=== PATIENT | female | born 1975 | race African-American/Black ===

== ENCOUNTER 2020-03-12 19:33 | Observation (INO) ==
[2020-03-12] MEDS ORDERED: ASPIRIN 325 MG TABLET PO STA (22:27)
[2020-03-12] MEDS ORDERED: NITROGLYCERIN SL 0.4 MG TABLET SL PRN ×2 (22:27→23:52)
[2020-03-12 22:45] LABS: Basophils # 0.1 10*3/uL (0.0-0.2); Basophils % 0.5 % (0.0-0.8); Eosinophils # 0.2 10*3/uL (0.0-0.87); Eosinophils % 2.5 % (0.00-10.9); Hematocrit 39.5 VOL% (35.7-47.0); Hemoglobin 12.2 GM/DL (12.0-16.0); Immature Granulocytes % 0.4 %; Immature Granulocytes Absolute 0.04 #; Mean Corpuscular HGB Conc 30.9 GM/DL (32-36); Mean Corpuscular Volume 83.5 FL (87-102); Mean Platelet Volume 9.3 FL (9.6-12.0); Monocytes % 5.9 % (1.7-12.7); Neutrophils % 59.7 % (38.7-73.9); Platelet Count 330 T/CUMM (130-400); Red Blood Count 4.73 MC/CUMM (3.8-5.5); Red Cell Distribution Width 16.5 % (9.3-17.3); White Blood Count 9.6 T/CUMM (4-12)
[2020-03-12 23:02] LABS: Alanine Aminotransferase 27 U/L (13-56); Albumin 3.7 G/DL (3.4-5.0); Alkaline Phosphatase 71 U/L (45-117); Aspartate Amino Transferase 13 U/L (0-37); Bilirubin,Total < 0.39 MG/DL (0.2-1.0); Blood Urea Nitrogen 15 MG/DL (7-18); Calcium 9.2 MG/DL (8.5-10.1); Estimated Glom Filtration Rate 121 ML/MIN; Glucose 132 MG/DL (74-106); Osmolality,Calculated 277.7 MOS/KG (273-304)
[2020-03-12] MEDS ORDERED: ACETAMINOPHEN 500 MG TABLET PO STA (23:35)
[2020-03-12] MEDS ORDERED: DEXTROSE 50% 25 GM/50 ML VIAL IV PRN (23:52)
[2020-03-12] MEDS ORDERED: ONDANSETRON 4 MG/2 ML VIAL IV PRN (23:52)
[2020-03-12] MEDS ORDERED: MAGNESIUM SULF RIDER 2 GM in PREMIX 1 EACH IV PRN (23:52)
[2020-03-12] MEDS ORDERED: POTASSIUM CHLORIDE 20 MEQ TABLET PO PRN (23:52)
[2020-03-12] MEDS ORDERED: MAGNESIUM HYDROXIDE SUSP 30 ML UDCUP PO PRN (23:52)
[2020-03-12] MEDS ORDERED: ACETAMINOPHEN 325 MG TABLET PO PRN (23:52)
[2020-03-12] MEDS ORDERED: GLUCAGON 1 MG VIAL IM PRN (23:52)
[2020-03-13 01:29] LABS: INR 0.9
[2020-03-13 06:08] LABS: Albumin 3.6 G/DL (3.4-5.0); Bilirubin,Total 1.7 MG/DL (0.2-1.0); Calcium 8.8 MG/DL (8.5-10.1); Osmolality,Calculated 273.1 MOS/KG (273-304); Risk Ratio 3.65; Total Protein 7.8 G/DL (6.4-8.3); VLDL CHOLESTEROL 18.6 MG/DL
[2020-03-13 06:13] LABS: Troponin I < 0.015 NG/ML (0.00-0.045)
[2020-03-13 06:23] LABS: PT Patient Result 10.3 SECS (9.8-11.9); Partial Thromboplastin Time 29.8 SECS (23.9-33.8)
[2020-03-13] MEDS: INSULIN LISPRO 100 UNIT/ML SUBCUT SCH ×2 (08:04→12:48)
[2020-03-13] MEDS ORDERED: amLODIPine 5 MG TABLET PO SCH (09:00)
[2020-03-13] MEDS ORDERED: ENOXAPARIN 40 MG/0.4 ML SYRINGE SUBCUT SCH (09:00)
[2020-03-13] MEDS ORDERED: METOPROLOL TARTRATE 25 MG TABLET PO SCH (09:00)
[2020-03-13] MEDS ORDERED: ASPIRIN EC 325 MG TABLET PO SCH (09:00)
[2020-03-13] MEDS ORDERED: LOSARTAN 50 MG TABLET PO SCH (09:00)
[2020-03-13 09:41] LABS: Basophils % 0.6 % (0.0-0.8); Eosinophils # 0.2 10*3/uL (0.0-0.87); Hematocrit 37.3 VOL% (35.7-47.0); Hemoglobin 11.7 GM/DL (12.0-16.0); Immature Granulocytes % 0.4 %; Immature Granulocytes Absolute 0.03 #; Lymphocytes # 1.9 10*3/uL (1.4-4.0); Lymphocytes % 27.7 % (21.3-54.2); Mean Corpuscular HGB Conc 31.4 GM/DL (32-36); Mean Corpuscular Volume 82.9 FL (87-102); Mean Platelet Volume 10.1 FL (9.6-12.0); Monocytes % 6.3 % (1.7-12.7); Platelet Count 308 T/CUMM (130-400); Red Cell Distribution Width 16.5 % (9.3-17.3)
[2020-03-13 11:17] VITALS: BP 119/78
[2020-03-13] MEDS ORDERED: SIMVASTATIN 20 MG TABLET PO SCH (21:00)
== END 2020-03-13 14:28 | disposition home or self-care (01) ==
LOC: N.ED 19:33 → N.EDINP 19:33 → N.TELES 03-13 00:12
PROVIDERS: ADMIT Internal Medicine; ATTEND Internal Medicine